=== PATIENT | male | born 1960 | race Asian ===

== ENCOUNTER 2019-12-21 09:35 | Outpatient (CLI) | payer BC ==
--- NOTE | 2019-12-21 11:10 | ULT ---
BILATERAL RENAL ULTRASOUND: Date: 12/21/2019 HISTORY: Benign prostatic hyperplasia. FINDINGS: The right kidney measures 11.4 cm in length and the left kidney measures 11.1 cm in length. No focal mass or hydronephrosis is seen. No shadowing calculi are noted. Cortical thickness and echogenicity a re normal. The pre-void bladder volume measures 420 mL with a post-void residual of 30 mL. The prosta te measures 4.5 x 4.3 x 3.6 cm. IMPRESSION: 1. Normal renal ultrasound. 2. Prostatic enlargement. POS: [facility]
== END 2019-12-21 09:36 | disposition home or self-care (01) ==
LOC: ULT 09:35
PROVIDERS: ATTEND Internal Medicine
DX: N40.0 Benign prostatic hyperplasia without lower urinary tract symptoms (principal)
CPT/HCPCS: 76770